=== PATIENT | female | born 1990 | race African-American/Black ===

== ENCOUNTER 2016-09-17 21:48 | Emergency (ER) | payer OTHER ==
[~2016-09-17] VITALS: Ht 165.1 cm; Wt 66.1 kg
[~2016-09-17 21:48] MED LIST: HYDROCODON-ACE1 EAC7 PO; IBUPROFEN800 MG PO; IRON160 M1 PO; METHERGINE0.2 MG PO; MULTIVITAMIN1 EAC2 PO; PERCOCET 5/31 TABLET PO; PRENATAL TABLE1 EAC3 PO; TYLENOL REGULA325 MG PO
[2016-09-17] MEDS ORDERED: VIBRAMYCIN100 MG PO (22:44)
[2016-09-17 23:32] VITALS: BP 142/76
== END 2016-09-17 23:32 | disposition home or self-care (01) ==
LOC: EME 21:48 → RME 21:48
DX: R59.0 Localized enlarged lymph nodes (principal)
CPT/HCPCS: 99281; 99283

== ENCOUNTER 2017-01-04 21:14 | Emergency (ER) | payer OTHER ==
[~2017-01-04] VITALS: Ht 157.5 cm; Wt 66.9 kg
[~2017-01-04 21:14] MED LIST changes: +VIBRAMYCIN100 MG PO
[2017-01-04 21:57] VITALS: BP 113/88
== END 2017-01-04 23:17 | disposition left against medical advice (07) ==
LOC: EME 21:14
DX: R10.9 Unspecified abdominal pain (principal); Z53.21 Procedure and treatment not carried out due to patient leaving prior to being seen by health care provider
CPT/HCPCS: 80053; 81003; 84702; 85027

== ENCOUNTER 2017-06-22 16:15 | Emergency (ER) | payer OTHER ==
[~2017-06-22] VITALS: Ht 157.5 cm; Wt 66.2 kg
[2017-06-22 17:52] VITALS: BP 112/74
== END 2017-06-22 17:57 | disposition home or self-care (01) ==
LOC: EME 16:15
DX: R51 Headache (principal); R11.0 Nausea

== ENCOUNTER 2017-11-16 18:54 | Day surgery (SDC) | payer OTHER ==
[~2017-11-16] VITALS: Ht 157.5 cm; Wt 68.5 kg
[2017-11-16 19:38] LABS: HEMATOCRIT 39.7 % (36.0-46.0); HEMOGLOBIN 12.8 G/DL (11.9-15.5); MCH 24.8 PG (29.0-34.0); MCHC 32.2 G/DL (30.0-36.0); MCV 76.9 FL (83-99); PLATELET COUNT 239 K/uL (156-360); RBC DIS.WIDTH-CV 12.9 % (11.8-14.6); RBC DIS.WIDTH-SD 35.7 % (39-53); RED BLOOD COUNT 5.16 M/uL (3.80-5.20); WHITE BLOOD COUNT 8.9 K/uL (4.1-10.2)
[2017-11-16 19:45] LABS: APPEARANCE CLEAR ((CLEAR)); BILIRUBIN NEGATIVE; BLOOD SMALL; COLOR YELLOW ((YELLOW)); GLUCOSE (STRIP) NEGATIVE; KETONES NEGATIVE; LEUKOCYTES NEGATIVE; NITRITE NEGATIVE; PROTEIN (STRIP) NEGATIVE; SPECIFIC GRAVITY 1.012 (1.000-1.030); UROBILINOGEN 0.2 MG/DL (0.2-1.0)
[2017-11-16 19:50] LABS: ALBUMIN 4.5 g/dL (3.2-4.8); CHLORIDE 102 mEq/L (99-109); SODIUM 140 mEq/L (136-147)
[2017-11-16 19:52] LABS: GLUCOSE 129 mg/dL (70-99)
[2017-11-16 19:53] LABS: TOTAL PROTEIN 7.5 g/dL (6.4-8.3)
[2017-11-16 19:54] LABS: TOTAL BILIRUBIN 0.9 mg/dL (0.0-1.0)
[2017-11-16 19:55] LABS: BACTERIA NONE SEEN /HPF; EPITHELIAL CELLS 1+ /HPF; MUCUS TRACE /LPF; RED BLOOD CELLS 0-5 /HPF (0-5); UCUL ADDED? NO; WHITE BLOOD CELLS 0-5 /HPF (0-5)
[2017-11-16 19:56] LABS: ALKALINE PHOSPHATASE 57 IU/L (3-129); CREATININE 0.8 mg/dL (0.6-1.3); GFR ESTIMATE (CALCULATED) > 59 mL/min/
[2017-11-16 19:57] LABS: UREA NITROGEN (BUN) 7 mg/dL (9-23)
[2017-11-16 19:58] LABS: AST (GOT) 17 IU/L (2-34)
[2017-11-16 19:59] LABS: ALT (GPT) 15 IU/L (3-49); LIPASE 49 U/L (1.0-51.0)
[2017-11-16 20:06] LABS: QUANTITATIVE HCG < 4.0 MIU/ML
[2017-11-16] MEDS ORDERED: ESTARYLLA1 EACH PO (22:10)
[2017-11-16] MEDS ORDERED: HAIR, SKIN & N1 EAC1 PO (22:18)
[2017-11-17 02:52] VITALS: BP 137/87
[2017-11-17 07:37] VITALS: BP 130/86
[2017-11-17] MEDS ORDERED: NORCO 5/3251 TABLET PO (08:12)
[2017-11-17 15:14] VITALS: BP 146/93
== END 2017-11-17 17:04 | disposition home or self-care (01) ==
LOC: EME 18:54 → SDC 11-17 00:14 → 2EASTP 11-17 00:53 → ENRESERV 11-17 01:04 → 2EASTP 11-17 17:04
PROC: 0DTJ4ZZ Resection of Appendix, Percutaneous Endoscopic Approach (ICD-10-PCS; principal; 2017-11-17)
DX: K35.80 Unspecified acute appendicitis (principal)
CPT/HCPCS: 74177; 80053; 81003; 83690; 84702; 85027; 88304; 93005; 99281; 99285; G0378; J0131; J0330; J0690; J1170; J1885; J2405; J3010; J7120